=== PATIENT | female | born 1990 | race Caucasian/White ===

== ENCOUNTER 2022-04-19 06:06 | Inpatient (IN) ==
--- NOTE | 2022-04-05 13:21 | Anesthesiology Consultation ---
Date of Service April 05, 2022 History Surgery Operation Date: 04/19/22 08:15 Proposed Procedures p Robotic Adrenalectomy - Manan Parker, DO Height/Weight Height: 5 ft 1 in Weight: 76.204 kg Allergies Allergy/AdvReac Type Severity Reaction Status Date / Time metformin Allergy Unknown Unknown Verified 04/05/22 09:56 venlafaxine Allergy Unknown Hives, Verified 04/05/22 09:56 Itching Medications Home Medications Medication Instructions Recorded Confirmed Last Taken albuterol sulfate 90 mcg/actuation 2 puff inhalation Q6H PRN Wheezing 02/08/22 04/05/22 Unknown aerosol inhaler dulaglutide 0.75 mg/0.5 mL 0.75 mg subcut Q7D 02/08/22 04/05/22 Unknown subcutaneous pen injector (Trulicity) escitalopram oxalate 10 mg tablet 10 mg PO QAM 02/08/22 04/05/22 Unknown (Lexapro) hydroxyzine HCl 25 mg tablet 25 mg PO BID 02/08/22 04/05/22 Unknown sumatriptan succinate 100 mg tablet 100 mg PO Q2H PRN Migraine Headache 02/08/22 04/05/22 Unknown Past Medical History Medical History Anxiety Bronchitis HX-LAST TIME 2-3 YRS AGO-LAST USE RESCUE 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 Depression Diabetes mellitus, type 2 History of COVID-19 07/2021 Past Family History Family History Mother Alcoholism Per [facility] records- "Alcohol and Other Disorders Associated" Hypertension Brother Neurologic disorder Grandmother (Paternal) Cancer Family history of diabetes mellitus Grandfather (Paternal) Cancer Past Surgical History Surgical History delivery delivered X 2 Hx of breast reduction, elective Social History Smoking Status: Current every day smoker Smoking cigarettes per day: 10 CIGS A DAY Do You Dip or Chew Tobacco: No Hx Alcohol Use: Yes Alcohol type: beer, wine and hard liquor alcohol intake frequency: holidays/special occasions only Hx Substance Use: No Testing Laboratory Results Laboratory Tests 03/27/22 03/27/22 11:32 11:32 Hgb 14.8 Plt Count 294 Potassium 3.5 Creatinine 0.79
[~2022-04-19 06:06] MED LIST: LR 15ML/HR IV SCH; ceFAZolin 2000MG 2,000 MG/15 ML SYR IV SCH
[2022-04-19] MEDS ORDERED: ATROPINE SULFATE 0.1 MG/ML 10ML SYR IV PRN (06:54)
[2022-04-19] MEDS ORDERED: fentaNYL citrate 100 MCG/2 ML VIAL IV PRN (06:54)
[2022-04-19] MEDS ORDERED: ePHEDrine sulfate 50 MG/ML AMP IV PRN (06:54)
[2022-04-19] MEDS ORDERED: HYDROmorphone INJ 1 MG/ML SYRINGE IV PRN (06:54)
[2022-04-19] MEDS ORDERED: ONDANSETRON INJ 2 MG/ML 2 ML VIAL IV PRN ×2 (06:54→12:56)
[2022-04-19 07:04] LABS: Pregnancy Test, Serum Negative (Negative)
[2022-04-19] MEDS ORDERED: NEOSTIGMINE METHYLSULFATE 1 MG/ML 10ML VIAL ONE (07:37)
[2022-04-19] MEDS ORDERED: MIDAZOLAM HCL 1 MG/ML 2ML VIAL ONE (07:37)
[2022-04-19] MEDS ORDERED: ONDANSETRON INJ 2 MG/ML 2 ML VIAL ONE ×2 (07:37→10:57)
[2022-04-19] MEDS ORDERED: PROPOFOL IV EMULSION 10 MG/ML 20 ML VIAL IV ONE (07:37)
[2022-04-19] MEDS ORDERED: GLYCOPYRROLATE 0.2 MG/ML VIAL ONE ×2 (07:37→11:05)
[2022-04-19] MEDS ORDERED: fentaNYL citrate 100 MCG/2 ML VIAL ONE (07:37)
[2022-04-19] MEDS ORDERED: DEXAMETHASONE SOD INJ 4 MG/ML VIAL ONE (07:37)
[2022-04-19] MEDS ORDERED: BUPIVACAINE 0.5 % 5 MG/1 ML MPF 30ML VIAL ONE (07:41)
--- NOTE | 2022-04-19 08:09 | History & Physical Bridge Note ---
Date of Service April 19, 2022 History & Physical Bridge Note I have examined the patient, reviewed the History & Physical and in the interval since the performance of the History & Physical I have noted the following changes of clinical significance: no changes noted
[2022-04-19] MEDS ORDERED: HYDROCORTISONE SOD 100 MG in SYRINGE 0 ML IV ONE (08:14)
[2022-04-19] MEDS ORDERED: HYDROCORTISONE SOD SUCCINATE 100 MG/2 ML VIAL IV ONE (08:30)
[2022-04-19] MEDS ORDERED: HYDROCORTISONE SOD SUCCINATE 100 MG/2 ML VIAL ONE (08:52)
[2022-04-19] MEDS ORDERED: LIDOCAINE 2% MPF LOCAL 5 ML VIAL INFIL ONE (08:55)
[2022-04-19] MEDS ORDERED: ROCURONIUM BROMIDE 10 MG/ML 5 ML VIAL IV ONE ×3 (08:55→11:02)
[2022-04-19] MEDS ORDERED: ALBUTEROL HFA INHALER 8.5 GM ONE (09:07)
[2022-04-19] MEDS ORDERED: HYDROmorphone INJ 2 MG/ML SYR/VIAL ONE (10:06)
[2022-04-19] MEDS ORDERED: hydrALAZINE HCL 20 MG/ML VIAL ONE (10:44)
--- NOTE | 2022-04-19 11:26 | Operative Report ---
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 Significant intra-abdominal lipose tissue with Significant adhesions of the omentum and retroperitoneum to the liver Specimens Right adrenal gland with adenoma Drains 18 Fr Tang Anesthesia Type General Complications none Disposition Disposition: Recovery Room Indications Patient with adenoma of the adrenal gland. Patient underwent workup for functional status. Patient was specifically worked up for pheochromocytoma. This workup was negative. Did find severe boris sequela with morbid truncal obesity, diabetic issues, and significant skin issues. The work-up was then completed and confirmation by testing by endocrinology. This lab work was all consistent with adrenal [place] syndrome. Risks and benefits discussed at length. Description of Procedure The patient was brought to the operative suite and placed under general endotracheal intubation anesthesia in the supine position. The patient was transferred to lateral position with the right flank exposed. The patient was placed into a flex'ed position and then placed into mild reverse Trendelenberg. At this point, the patient prepped and draped in the usual sterile fashion and a timeout was completed. Preoperative weight based antibiotics had been given. DANIKA's and SCD's were placed on the patient's lower extremities. A catheter was placed by nursing using sterile technique. Patient had been given 100 mg of hydrocortisone immediately preoperatively. With the time out completed the patient was flexed and the skin was marked. The lateral port site was anesthetized. A small incision was made into the skin and subcutaneous tissues. A Varess needle was selected and placed. The needle was easily moved and it was irrigated and aspirated without any issues or concerns for placement. Insufflation commenced. Once insufflated, the lateral edge of the rectus sheath was marked and anesthetized. The skin was incised and a came ra port was placed. The cavity was insufflated to 15 mmHG. The laparoscopic camera was placed and the abdominal cavity inspected. No concerning features were noted. At this point, the skin was marked for port placement and 8mm working ports were placed. The skin was anesthetized down to fascia and an approx 1cm incision was made to place the 2 x 8mm ports. A 12 mm finance assistant ports were also placed in similar fashion under direct visualization. The robot was positioned and docked. The camera was placed and all trocars were positioned under direct visualization. Marleny Zelda was integral in port placement, camera utilization, and docking procedure. She remained in sterile attire and then proceeded to assist the remainder of the case. The colon was mobilized medially to expose the retroperitoneum and the area assessed. Adhesions were freed to allow mobilization. A small amount of adhesions were noted from the colon and were freed. These were dissected with blunt technique. Cautery was used to assist dissection and control bleeding. The retroperitoneal fat was assessed. The adenoma as well as the IVC was identified. Care was taken to dissect down near the IVC. This was then followed superiorly. Dissection stayed toward the midline along the IVC and the ureter and gonadal vein were avoided. The dissection was followed to the renal pelvis. The Renal Vein was identified and exposed. Dissection was taken further superior. At this point the liver was further mobilized. A severe amount of adhesions was noted coming from the liver to the retroperitoneum as well as a long the medial edge attached to the omentum. The liver was enlarged and required retraction. A extensive lysis of adhesions was completed with approximately 30 minutes spent lysing adhesions and entering and accessing to the retroperitoneum in order to dissect over the superior edge of the adrenal gland and the retroperitoneum. The liver was then mobilized and care was taken to slowly dissect between the adenoma/adrenal gland and the IVC. The Adrenal vein was identified. The vein was found to be small and a single hemolock clips were used to clamp the vein. The portion of the adrenal vein proximal to the adrenal gland was then ligated and cut. No changes in heart rate or blood pressure occurred with placement of the clips. The adrenal gland with the large adenoma was then slowly dissected. Small vessels were ligated and cut as dissection progressed. The posterior, inferior, and superior surfaces were dissected free. The superior edge was found to have additional adhesions and required careful dissection to remove from the liver. Some small areas of irritation were noted from both the retraction of the liver as well as the dissection on top of the liver tissue. N o major bleeding or other issues. The specimen was placed into a catch bag and set to the side. Surgicel hemostatic agent sheets were placed under the liver and on the incised edge. Hemostatic agents Tisseel and Floseal were also placed. Hemostatic agent was also placed on the IVC. No major bleeding or other issues. The entire dissection space was inspected one final time. No bleeding or injuries or areas of concern were noted. No tumor or other concerning features were noted. The kidney appeared to be without injury or area of concern. At this point, the robot was undocked and moved away from the patient. The port sites were all assessed laparoscopically. The endoscopic bag was moved into the finance assistant port. The other ports were assessed and no issues observed. The finance assistant port incision was opened further exposing fascia which was then opened in order to removed the mass within the bag. This was then removed and the wound assessed. A running 1-0 PDS suture was used to close fascia. The skin at each site was closed with a a running 4-0 Monocryl suture. Surgical glue was then placed over the incisions. The area was cleaned and bandage placed on each incision. The patient was cleaned and bandaged. He was moved back into the supine position The patient was cleaned, aroused from anesthesia, and transferred to the pacu in stable condition having tolerated the procedure well with no complications. I was present and participated in all aspects of the procedure. ELLIE Chen was involved with all critical portions of the procedure as mentioned above. The endocrinology team has already recommended a steroid regimen to be implemented postoperatively. Patient will be transferred to PACU and monitored and then transferred to the floor for observation. We will initiate diet and activity with plans to monitor overnight and possibly discharge in the morning. We will plan to have patient follow-up in approximately 2 to 3 weeks to assess w ounds and discuss pathology. I attest to the content of the Intraoperative Record and any orders documented therein. Any exceptions are noted below.
[2022-04-19 11:56] LABS: Hematocrit (blood only) 41.1 % (34.1-44.9); Hemoglobin 13.5 g/dl (12.0-16.0); Mean Corpuscular Hemoglobin 30.6 pg (25.0-34.0); Mean Corpuscular Hgb Conc 32.8 g/dL (32.0-36.0); Mean Corpuscular Volume 93.2 fL (80.0-100.0); Mean Platelet Volume 9.9 fL (9.4-12.3); Platelet Count 306 K/uL (130-400); RDW Standard Deviation 43.9 fL (36.4-46.3); Red Blood Count 4.41 M/uL (3.93-5.22); White Blood Count 27.99 K/ul (4.8-10.8)
[2022-04-19 12:22] LABS: Basophils # (auto) 0.09 K/uL (0-0.2); Basophils % (auto) 0.3 %; Eosinophils # (auto) 0.08 K/uL (0-0.50); Eosinophils % (auto) 0.3 %; Immature Granulocytes # (auto) 0.76 K/uL (0.00-0.02); Immature Granulocytes % (auto) 2.7 %; Lymphocytes # (auto) 3.02 K/uL (1.2-3.4); Lymphocytes % (auto) 10.8 %; Neutrophils # (auto) 22.64 K/uL (1.4-6.5); Neutrophils % (auto) 80.9 %
[2022-04-19 12:25] LABS: Albumin Globulin Ratio 1.6 (0.9-2); Albumin Level 3.6 gm/dl (3.4-5.0); BUN Creatinine Ratio 19.7 (10-20); Bilirubin,Total 0.3 mg/dl (0.2-1.0); Calcium 8.5 mg/dl (8.5-10.1); Creatinine Clr Calc Pharmacy 105.6 ml/min; Est GFR (African American) 130.6 ml/min; Est GFR (Non-African American) 112.7 ml/min; Globulin 2.2 gm/dl (2.5-4.0); Total Protein 5.8 gm/dl (6.0-8.3)
--- NOTE | 2022-04-19 12:38 | Anesthesiology Progress Note ---
Date of Service April 19, 2022 Anesthesia Post Procedure Vital Signs Vital Signs: Temp Pulse Pulse Resp BP Pulse Ox O2 Del Method 04/19/22 12:25 36.4 C L 69 12 127/80 93 Nasal Cannula 04/19/22 12:05 70 18 137/82 94 Oxymask 04/19/22 11:55 76 18 136/99 93 Oxymask 04/19/22 11:45 80 19 144/94 H 92 Oxymask 04/19/22 12:15 88 16 127/81 94 Nasal Cannula 04/19/22 11:38 36.7 C 98 H 12 154/97 H 94 Oxymask 04/19/22 06:32 36.4 C L 64 18 137/102 H 98 Room Air O2 Flow Rate 04/19/22 12:25 2 04/19/22 12:05 6 04/19/22 11:55 8 04/19/22 11:45 10 04/19/22 12:15 2 04/19/22 11:38 10 04/19/22 06:32 Pain Intensity Right Abdomen: Pain Intensity: 4 Transfer of Care Handoff Completed per policy Notes Mental Status: alert / awake / arousable and participated in evaluation Patient Amnestic to Procedure: Yes Nausea / Vomiting: adequately controlled Pain: adequately controlled Airway Patency, RR, SpO2: stable & adequate BP & HR: stable & adequate Hydration State: stable & adequate Anesthetic Complications: no major complications apparent and Pt Satisfied with anesthetic care
[2022-04-19] MEDS ORDERED: SUMAtriptan succinate 100 MG TAB PO PRN (12:56)
[2022-04-19] MEDS ORDERED: oxyCODONE HCL IR 5 MG TAB (IMMEDIATE RELEASE) PO PRN (12:56)
[2022-04-19] MEDS ORDERED: PHARMACY GLYCEMIC MGMT CONSULT PRN (12:56)
[2022-04-19] MEDS ORDERED: ALBUTEROL HFA 8 GM INHALER INH PRN (12:56)
[2022-04-19] MEDS: MoRPHine SULFATE 2 MG/ML CARP IV PRN (13:11)
[2022-04-19] MEDS: ACETAMINOPHEN 325 MG TAB PO SCH ×2 (13:11→18:49)
[2022-04-19] MEDS: LACTATED RINGER'S 1,000 ML IV SCH ×2 (13:12→22:25)
[2022-04-19] MEDS ORDERED: LANTUS PER UNIT CHARGE SQ ONE ×2 (13:45→14:00)
[2022-04-19] MEDS ORDERED: GLUCOSE 10 TAB/TUBE PO PRN (13:45)
[2022-04-19] MEDS ORDERED: GLUCOSE 40% GEL 15 GM TUBE PO PRN (13:45)
[2022-04-19] MEDS ORDERED: CARBOHYDRATES FOR HYPOGLYCEMIA PO PRN (13:45)
[2022-04-19] MEDS ORDERED: GLUCAGON FOR INJ 1 MG VIAL IM PRN (13:45)
[2022-04-19] MEDS ORDERED: DEXTROSE 50% 50 ML SYRINGE IV PRN (13:45)
--- NOTE | 2022-04-19 13:53 | Pharmacy Report ---
Pharmacy Glycemic Short Note 2 - Date of Service April 19, 2022 - Glycemic Short BSG Results (Last 24 hours): 04/19/22 04/19/22 04/19/22 06:25 11:42 11:44 Glucose 201 H POC Glucose 158 H 195 H OUTPATIENT ANTIDIABETIC REGIMEN: * Trulicity 0.75 mg SC weekly HbA1c ordered for 04/20/22 ASSESSMENT: * OK is a 31 year old female with T2DM and [place] syndrome now POD #0 s/p right adrenalectomy * Ordered prednisone 40 mg x 1 this afternoon followed by prednisone 20 mg q8h * Will order ~0.4 unit/kg Lantus x 1 now + aggressive Novolog to help cover hyperglycemic effects of steroids * Preoperative BSG of 158 and postoperative BSG of 195 mg/dL PLAN FOR INPATIENT GLYCEMIC CONTROL: * Basal insulin * Lantus 30 units SC x 1 (~0.4 unit/kg) * Bolus insulin * NovoLog per scale ACHS or Q6hrs while NPO * Goal Range: Low 110 mg/dL - High 140 mg/dL * Correction Factor: 20 mg/dL/unit * Nutritional / Prandial insulin per carb ratio of 1 unit per 7 grams CHO consumed
[2022-04-19] MEDS: INSULIN ASPART PER UNIT SC SCH ×3 (14:00→20:55)
[2022-04-19] MEDS: oxyCODONE HCL IR 5 MG TAB (IMMEDIATE RELEASE) PO PRN ×3 (14:02→23:12)
[2022-04-19] MEDS ORDERED: predniSONE 20 MG TAB PO ONE (15:00)
--- NOTE | 2022-04-19 15:09 | Hospitalist Consultation ---
Date of Consultation April 19, 2022 Assessment & Plan (1) H/O total adrenalectomy: - POD#0, EBL 60 cc, without complications. - She is complaining of right-sided back/chest pain with respirations. Breath sounds are equal bilaterally. On RA without hypoxia. - Pain/ABX/IVF/diet/drain management/transfusion needs/activity per primary team. - Rescue Narcan ordered for over sedation PRN - VTE prophylaxis per primary service-SCDs and heparin every 12 hours ordered by primary team. - CBC and BMP in AM. - Baseline renal function: Cr 0.71, GFR 112 - Baseline Hgb: 13.5 - Patient to be on 50 mg IV hydrocortisone x2 bags today POD #0, followed by 40 mg p.o. hydrocortisone tomorrow a.m. and 20 mg p.o in the afternoon. - Patient reported history of reflux, will place patient on prophylactic PO Protonix. (2) Viviana syndrome: (3) Diabetes: - Managed with Trulicity weekly, due for injection tomorrow. - Accucheks ACHS with aggressive SSI while admitted and on IV/PO steroids. - A1c in AM. (4) Depression: - Continue Lexapro and hydroxyzine. (5) LFT elevation: - AST 94, ALT 95 post-operatively. - No history of elevated LFTS or known liver disease. - Suspect it is a transient post-op transaminitis. - Monitor on tomorrow's labs. Plan - Admitted to med/surg by primary team - SCDs and Heparin for VTE ppx per primary team. - Full Code. Supervising Physician Co-Signing Physician Notes I personally saw and examined the patient. I verified all nicole points and agree with Yvonne Lomeli PA-C with the following exceptions and/or additions: 31 year old female POD#0 right adrenalectomy. Diagnosed with Viviana syndrome. Having some mild post operative pain on right side, especially on deep breathin g. No prior DVT or PE. O/E Lewis facies, obese, HS1+2, no murmurs, Chest CTAB, Abdo SNT (no palpated on right side). A/P s/p adrenalectomy - Will follow endocrinology recommendations although recommend IV hydrocortisone 50mg q8h overnight as above and discussed with urology MANAGER TELEMARKETING. Start hydrocortisone 40mg +20mg PO tomorrow. Can be discharged on 20mg + 10mg PO. Post operative labs expected. Suspect transaminitis also due to operation and likely to improve with AM labs. Thank you for the consult will review patient tomorrow with AM labs History of Present Illness Reason for Consultation: post-op medical management Requesting Physician: Manan Parker II, DO Attending Physician: Manan Parker II, DO History of Present Illness Khushi Mclaughlin is a 31-year-old female with past medical history significant for Viviana's syndrome, diabetes, anxiety, depression, and migraine headaches who was admitted today, 04/19 for robotic right adrenalectomy and lysis of lesions. Hospitalist group was consulted for post-operative medication management. Today, she is POD#0 and feels well. Does complain of some mildmoderate right back and chest pain with inspirations. She denies fever/chills, weakness, chest pain palpitations, shortness of breath, cough, abdominal pain, nausea, vomiting. Regarding her chest pain, it is likely due to surgery this all morning on that side. Breath sounds are equal bilaterally, no concern for pneumothorax. She is on room air. She has incentive spirometry ordered every hour and I encouraged her to use this postoperatively. She does have Tylenol and morphine, and oxycodone available for pain. Allergies Allergy/AdvReac Type Severity Reaction Status Date / Time metformin Allergy Unknown Unknown Verified 04/19/22 06:27 venlafaxine Allergy Unknown Hives, Verified 04/19/22 06:27 Itching Home Medications Medication Instructions Recorded Confirmed Type albuterol sulfate 90 mcg/actuation 2 puff inhalation Q6H PRN Wheezing 02/08/22 04/19/22 History aerosol inhaler dulaglutide 0.75 mg/0.5 mL 0.75 mg subcut Q7D 02/08/22 04/19/22 History subcutaneous pen injector (Trulicity) escitalopram oxalate 10 mg tablet 10 mg PO QAM 02/08/22 04/19/22 History (Lexapro) hydroxyzine HCl 25 mg tablet 25 mg PO BID 02/08/22 04/19/22 History sumatriptan succinate 100 mg tablet 100 mg PO Q2H PRN Migraine Headache 02/08/22 04/19/22 History Patient History Medical History (Updated 04/19/22 @ 16:07 by Yvonne Lomeli PA-C) Anxiety Bronchitis HX-LAST TIME 2-3 YRS AGO-LAST USE RESCUE INHALE RUSE Viviana syndrome Depression Diabetes mellitus, type 2 History of COVID-19 07/2021 Surgical History (Updated 04/19/22 @ 15:21 by Yvonne Lomeli PA-C) delivery delivered X 2 H/O total adrenalectomy Hx of breast reduction, elective Family History Mother Alcoholism Per [facility] records- "Alcohol and Other Disorders Associated" Hypertension Brother Neurologic disorder Grandmother (Paternal) Cancer Family history of diabetes mellitus Grandfather (Paternal) Cancer Social History Smoking Status: Current every day smoker Tobacco Type: Cigarettes packs per day: 1; Years Smoked: 10; Cigarettes Per Day: 10 CIGS A DAY; Second Hand Exposure: Yes; Do You Dip or Chew Tobacco: No; Hx Alcohol Use: Yes Alcohol type: beer, wine and hard liquor Hx Substance Use: No Preferred Language: Ukrainian Communication Ability: Effective Hearing Ability: Normal Press Cleaner Required: No Beliefs That Will Affect Care: None marital status: Single Current Living Situation: Family and Significant Other current occupational status: employed 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 How many Children do You have: 2 Other Information That Helps Us Care for You: No Feels Safe at Home: Yes Safety Concerns: Feels Safe At This Time Assistive Devices: None Review of Systems Review of Systems: Constitutional: No fever/chills, weakness, fatigue, myalgias, anorexia, night sweats Eyes: No diplopia, no worsening or blurred vision ENT: normal hearing, no trouble swallowing Respiratory: right sided pain with respirations; No cough, sputum, dyspnea at rest or on exertion Cardiovascular: No chest pain, tightness or palpitations Abdomen: No pain, nausea, vomiting, diarrhea or constipation : Denies dysuria, hematuria, increased urgency/frequency, urinary retention Musculoskeletal: No joint pain, calf pain, swelling Neurologic: No weakness, numbness/tingling, or balance problems Psychiatric: No anxiety or depression Skin: No rash or itch Physical Exam Physical Exam: General: awake, alert, no apparent distress Head: Normocephalic, atraumatic ENT: PERRL, EOMI, no pharyngeal exudate, mucous membranes moist Chest: Clear to auscultation, on room air, no adventitious breath sounds Cardiac: Regular rate and rhythm, no murmur, no JVD, normal peripheral pulses, good capillary refill Abdominal: TTP along right flank; NABS x 4 quadrants, soft, nontender to palpation, no rebound, guarding or tenderness Extremities: Normal inspection, no peripheral edema or erythema, calfs nontender to palpation Psych: Normal mood and affect Neuro: AAO x 3, strength intact bilaterally and rated 5/5, no motor deficits, speech is clear, no peripheral sensory deficits Skin: no rash or erythema Results & Data Results & Data ([facility]) Vital Signs (Past 12 Hours) Vital Signs Temp Pulse Pulse Resp BP BP Pulse Ox 04/19/22 14:40 36.3 C L 81 18 128/81 96 04/19/22 13:46 36.3 C L 92 H 16 118/78 97 04/19/22 13:40 04/19/22 13:15 36.4 C L 95 H 16 133/85 98 04/19/22 12:45 36.4 C L 71 14 123/86 95 04/19/22 12:25 36.4 C L 69 12 127/80 93 04/19/22 12:05 70 18 137/82 94 04/19/22 11:55 76 18 136/99 93 04/19/22 11:45 80 19 144/94 H 92 04/19/22 12:15 88 16 127/81 94 04/19/22 11:38 36.7 C 98 H 12 154/97 H 94 04/19/22 06:32 36.4 C L 64 18 137/102 H 98 O2 Del Method O2 Flow Rate 04/19/22 14:40 Nasal Cannula 1 04/19/22 13:46 Nasal Cannula 2 04/19/22 13:40 Nasal Cannula 2 04/19/22 13:15 Nasal Cannula 2 04/19/22 12:45 Nasal Cannula 2 04/19/22 12:25 Nasal Cannula 2 04/19/22 12:05 Oxymask 6 04/19/22 11:55 Oxymask 8 04/19/22 11:45 Oxymask 10 04/19/22 12:15 Nasal Cannula 2 04/19/22 11:38 Oxymask 10 04/19/22 06:32 Room Air Laboratory Results Abnormal lab results 04/19/22 04/19/22 04/19/22 Range/Units 06:25 11:42 11:44 WBC 27.99 H (4.8-10.8) K/ul Neut # (Auto) 22.64 H (1.4-6.5) K/uL Pitkin # (Auto) 1.40 H (0.24-0.82) K/uL Immature Gran # (Auto) 0.76 H (0.00-0.02) K/uL Glucose (70-99(Fasting)) mg/dl POC Glucose 158 H 195 H (70-99) mg/dl AST (13-39) U/L ALT (7-52) U/L Total Protein (6.0-8.3) gm/dl Globulin (2.5-4.0) gm/dl 04/19/22 04/19/22 Range/Units 11:44 13:49 WBC (4.8-10.8) K/ul Neut # (Auto) (1.4-6.5) K/uL Pitkin # (Auto) (0.24-0.82) K/uL Immature Gran # (Auto) (0.00-0.02) K/uL Glucose 201 H (70-99(Fasting)) mg/dl POC Glucose 209 H (70-99) mg/dl AST 94 H (13-39) U/L ALT 95 H (7-52) U/L Total Protein 5.8 L (6.0-8.3) gm/dl Globulin 2.2 L (2.5-4.0) gm/dl PG Care Time/CCT Total # of Minutes Spent Total Time Spent with Patient: Total time spent is greater than 50% in coordination of care (as documented) at patient's floor/unit and/or counseling patient: Coding Level of Care Code 28639 Inpt Consult Level 3 Diagnoses H/O total adrenalectomy E89.6 Viviana syndrome E24.9 Diabetes E11.9 Depression F32.A LFT elevation R79.89
[2022-04-19] MEDS ORDERED: NALOXONE HCL 0.4 MG/1 ML VIAL/CARP IV PRN (15:57)
[2022-04-19] MEDS: MoRPHine SULFATE 4 MG/ML 1 ML CARP\\VIAL IV PRN ×2 (16:01→19:27)
[2022-04-19] MEDS: HYDROCORTISONE SOD 50 MG in SYRINGE 0 ML IV SCH (16:01)
[2022-04-19] MEDS: PANTOprazole 40 MG TAB PO SCH (20:57)
[2022-04-19] MEDS ORDERED: HEPARIN SOD 5,000 UNIT/0.5 ML VIAL SQ SCH (21:00)
[2022-04-19] MEDS ORDERED: hydrOXYzine HCl 25 MG TAB PO SCH (21:00)
[2022-04-19] MEDS ORDERED: predniSONE 20 MG TAB PO SCH (23:00)
[2022-04-20] MEDS ORDERED: INSULIN ASPART PER UNIT SC SCH ×2
[2022-04-20] MEDS: HYDROCORTISONE SOD 50 MG in SYRINGE 0 ML IV SCH (00:05)
[2022-04-20] MEDS: INSULIN ASPART PER UNIT SC SCH ×4 (00:11→12:26)
[2022-04-20] MEDS: ACETAMINOPHEN 325 MG TAB PO SCH ×2 (01:27→06:47)
[2022-04-20] MEDS: MoRPHine SULFATE 2 MG/ML CARP IV PRN (03:50)
[2022-04-20 06:22] LABS: Albumin Globulin Ratio 1.7 (0.9-2); Albumin Level 3.6 gm/dl (3.4-5.0); BUN Creatinine Ratio 17.5 (10-20); Basophils # (auto) 0.02 K/uL (0-0.2); Basophils % (auto) 0.1 %; Bilirubin,Total 0.5 mg/dl (0.2-1.0); Calcium 8.9 mg/dl (8.5-10.1); Creatinine Clr Calc Pharmacy 131.5 ml/min; Eosinophils # (auto) 0.02 K/uL (0-0.50); Eosinophils % (auto) 0.1 %; Est GFR (African American) 142.2 ml/min; Est GFR (Non-African American) 122.7 ml/min; Globulin 2.1 gm/dl (2.5-4.0); Hematocrit (blood only) 38.6 % (34.1-44.9); Hemoglobin 12.6 g/dl (12.0-16.0); Immature Granulocytes # (auto) 0.05 K/uL (0.00-0.02); Immature Granulocytes % (auto) 0.4 %; Lymphocytes # (auto) 2.22 K/uL (1.2-3.4); Lymphocytes % (auto) 16.2 %; Mean Corpuscular Hemoglobin 30.8 pg (25.0-34.0); Mean Corpuscular Hgb Conc 32.6 g/dL (32.0-36.0); Mean Corpuscular Volume 94.4 fL (80.0-100.0); Mean Platelet Volume 10.1 fL (9.4-12.3); Monocytes % (auto) 5.8 %; Neutrophils # (auto) 10.63 K/uL (1.4-6.5); Neutrophils % (auto) 77.4 %; Platelet Count 232 K/uL (130-400); Potassium 4.2 mmol/L (3.5-5.1); RDW Coefficient of Variation 12.8 % (11.5-14.5); RDW Standard Deviation 43.9 fL (36.4-46.3); Red Blood Count 4.09 M/uL (3.93-5.22); Total Protein 5.7 gm/dl (6.0-8.3); White Blood Count 13.74 K/ul (4.8-10.8)
[2022-04-20 07:29] LABS: Estimated Average Glucose 154 mg/dl
[2022-04-20] MEDS ORDERED: HYDROCORTISONE 10 MG TAB PO SCH ×2 (08:00→16:00)
[2022-04-20] MEDS: PANTOprazole 40 MG TAB PO SCH (08:11)
[2022-04-20] MEDS ORDERED: HEPARIN SOD 5,000 UNIT/0.5 ML VIAL SQ SCH (09:00)
[2022-04-20] MEDS ORDERED: ESCITALOPRAM OXALATE 10 MG TAB PO SCH (09:00)
--- NOTE | 2022-04-20 09:09 | Hospitalist Progress Note ---
Date of Service April 20, 2022 Assessment & Plan (1) H/O total adrenalectomy: Plan: - POD#0, EBL 60 cc, without complications. - She is complaining of right-sided back/chest pain with respirations. Breath sounds are equal bilaterally. On RA without hypoxia. - Pain/ABX/IVF/diet/drain management/transfusion needs/activity per primary team. - Rescue Narcan ordered for over sedation PRN - VTE prophylaxis per primary service-SCDs and heparin every 12 hours ordered by primary team. - CBC and BMP in AM. - Baseline renal function: Cr 0.71, GFR 112 - Baseline Hgb: 13.5 - Patient to be on 50 mg IV hydrocortisone x2 bags day of surgery, followed by 40 mg p.o. hydrocortisone tomorrow a.m. and 20 mg p.o in the afternoon. - Patient reported history of reflux, will place patient on prophylactic PO Protonix. (2) Viviana syndrome: (3) Diabetes: Plan: - Managed with Trulicity weekly, due for injection tomorrow. - Accucheks ACHS with aggressive SSI while admitted and on IV/PO steroids. - A1c in AM. (4) Depression: Plan: - Continue Lexapro and hydroxyzine. (5) LFT elevation: Plan: - AST 94, ALT 95 post-operatively. - No history of elevated LFTS or known liver disease. - Suspect it is a transient post-op transaminitis. - Monitor on tomorrow's labs. Plan - Admitted to med/surg by primary team - SCDs and Heparin for VTE ppx per primary team. - Full Code. Admission and Anticipated Discharge Date Admission Date: April 19, 2022 Subjective Pt in the room with bobo has no distress and wants to go home, instructed to follow up with primary care about blood pressure, to avoid caffeine and alcohol Review of Systems Review of Systems: Mild distress and fatigue no headache, no visual changes no speech or swallowing issues no chest pain, pressure or palpitations no shortness of breath, cough or wheezes no abdominal pain, nausea or vomiting, diarrhea or constipation no dysuria, hematuria or frequency no focal joint pain or swelling no back pain, CVA tenderness or radicular pain no bruising, bleeding or rashes no focal signs of weakness or numbness or altered sensation no complaints of anxiety or depression.. Physical Exam Physical Exam: The patient appeared well nourished and normally developed. Vital signs as documented. Head exam is normocephalic atraumatic Neck is without JVD, thyromegaly, or carotid bruits. Lungs are clear to auscultation, no focal loss of breath sounds Cardiac exam, Rhythm is regular.. No murmurs, rubs or gallops. Abdominal exam reveals normal bowel sounds, soft non tender, no masses Extremities are nonedematous and both pedal pulses are present Neurologic exam is alert and oriented, no focal loss of strength or sensation Skin is without bruises or rashes Psychologically is without concerns for anxiety or depression.. Results & Data Results & Data ([facility]) Vital Signs (Past 12 Hours) Vital Signs Temp Pulse Resp BP BP Pulse Ox O2 Del Method 04/20/22 07:00 97.7 F 67 18 158/99 H 96 Room Air 04/20/22 04:07 133/88 04/20/22 03:49 98.2 F 62 18 154/99 H 94 Room Air 04/19/22 23:53 97.7 F 53 L 16 134/84 94 Room Air PG Care Time/CCT Total # of Minutes Spent Total Time Spent with Patient: Total time spent is greater than 50% in coordination of care (as documented) at patient's floor/unit and/or counseling patient: Coding Level of Care Code 06961 Subseq Hosp Care Lvl 2 Diagnoses H/O total adrenalectomy E89.6 [place] syndrome E24.9 Diabetes E11.9 Depression F32.A LFT elevation R79.89
--- NOTE | 2022-04-20 09:46 | Urology Progress Note ---
Date of Service April 20, 2022 Assessment & Plan (1) Lesion of adrenal gland: Plan: - POD #1 s/p Robotic right Adrenalectomy with extensive lysis of adhesions. - Doing well, progressing as expected. - Lab work reviewed - creatinine 0.57, Hgb 12.6, WBC improved to 13.74, transaminitis is downtrending today. - Incisions appropriate. - Ambulating and tolerating regular diet. - Voiding without difficulty after catheter removal this AM. - Continue post-op steroid instructions per Endocrinology. - Hydrocortisone 40 mg + 20 mg PO today. Will be discharged on 20 mg + 10 mg PO. - Appreciate hospitalist assistance with medical management. - Anticipate discharge to home later today presuming she continues to progress. Attending note: Independently assessed, examined, interviewed, and evaluated. Agree with note as above. Patient is postop day 1 status post robotic right adrenalectomy with lysis of adhesions. Patient's labs have been stable. Patient has orders and recommendations from endocrinology in place for steroid management after. Patient has been followed by hospitalist while admitted. Patient has history of Viviana syndrome with adrenal nodule and 2 to 3 years of worsening obesity, diabetes, hypertension, and other issues. Patient has been recovering well. Is not having significant pain. Has been ambulating. Catheter was removed without major issue and patient has been voiding. Patient is tolerating diet. Has lunch coming up. We will plan to have patient discharge after lunch today. As long as patient remained stable and plans are in place can continue moving forward and wound care, lifting restrictions, activity level, expectations after surgery, and other issues were discussed. Patient will be able wash later today. Can shower with warm soapy water. Will avoid lifting over 50 pounds until reassessment with follow-up. We will plan to have follow-up with our office in approximately 1 to 2 weeks for wound assessment and pathology review. Patient already has a follow-up with endocrinology set for 2 weeks to reevaluate her other ongoing medical issues likely sequelae from Viviana syndrome. (2) Viviana syndrome: (3) HTN (hypertension): (4) Diabetes: Admission and Anticipated Discharge Date Admission Date: April 19, 2022 Subjective Patient seen and examined at bedside this AM. She is awake and sitting up in bedside chair. Subjectively doing well, no issues overnight. She has been ambulating without difficulty. Notes some incisional discomfort, but well controlled with pain medication. Tang was removed this AM and she is voiding without difficulty. Tolerated regular diet for breakfast. No nausea or vomiting. No fever or chills. Review of Systems Constitutional: as per Subjective / HPI Gastrointestinal: as per Subjective / HPI Genitourinary: as per Subjective / HPI Physical Exam Constitutional: + obese and + cushingoid; no acute distress Respiratory: no respiratory distress and no labored breathing Cardiovascular: Extremities: no pedal edema Gastrointestinal (Abdomen): Inspection/Auscultation: abdomen normal to inspection; abdomen not distended Percussion/Palpation: abdomen soft; abdomen nontender and no guarding Musculoskeletal: Head/Neck/Chest: head atraumatic Skin: Surgical incisions C/D/I, healthy and well approximated, dermabond intact, no erythema or drainage Neurologic: moves all extremities and awake Psychiatric: Orientation: alert and oriented x 3 Results & Data ([facility]) Vital Signs (Past 12 Hours) Vital Signs Temp Pulse Resp BP BP Pulse Ox O2 Del Method 04/20/22 07:00 36.5 C 67 18 158/99 H 96 Room Air 04/20/22 04:07 133/88 04/20/22 03:49 36.8 C 62 18 154/99 H 94 Room Air 04/19/22 23:53 36.5 C 53 L 16 134/84 94 Room Air PG Care Time/CCT Total # of Minutes Spent Total Time Spent with Patient: Total time spent is greater than 50% in coordination of care (as documented) at patient's floor/unit and/or counseling patient: Coding Level of Care Code 97630 Subseq Hosp Care Lvl 2 Diagnoses Lesion of adrenal gland E27.9 Viviana syndrome E24.9 HTN (hypertension) I10 Diabetes E11.9
[2022-04-20] MEDS: oxyCODONE HCL IR 5 MG TAB (IMMEDIATE RELEASE) PO PRN (10:20)
[2022-04-20] MEDS ORDERED: PANTOprazole 40 MG in SYRINGE 0 ML IV SCH (11:00)
[2022-04-20] MEDS ORDERED: LANTUS PER UNIT CHARGE SQ SCH (13:15)
--- NOTE | 2022-04-20 14:00 | Discharge Summary ---
Date of Service April 20, 2022 Admission HPI Per Admitting Provider Patient with adenoma of the adrenal gland. Patient underwent workup for functional status. Patient was specifically worked up for pheochromocytoma. This workup was negative. Did find severe viviana sequela with morbid truncal obesity, diabetic issues, and significant skin issues. The work-up was then completed and confirmation by testing by endocrinology. 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 Risks and benefits discussed at length. Admission Exam Per Admitting Provider General: Alert in no acute distress. HEENT: Inspection normal Psychologic: Normal affect. Respiratory: Nonlabored. No use of accessory muscles. Skin: [place] and Dry. No rashes or visible lesions. Principal Diagnosis Lesion of adrenal gland Discharge Exam Constitutional: + obese and + cushingoid; no acute distr ess Respiratory: no respiratory distress and no labored breathing Cardiovascular: Extremities: no pedal edema Gastrointestinal (Abdomen): Inspection/Auscultation: abdomen normal to inspection; abdomen not distended Percussion/Palpation: abdomen soft; abdomen nontender and no guarding Musculoskeletal: Head/Neck/Chest: head atraumatic Skin: Surgical incisions C/D/I, healthy and well approximated, dermabond intact, no erythema or drainage Neurologic: moves all extremities and awake Psychiatric: Orientation: alert and oriented x 3 Discharge Data Allergies Allergy/AdvReac Type Severity Reaction Status Date / Time metformin Allergy Unknown Unknown Verified 04/19/22 06:27 venlafaxine Allergy Unknown Hives, Verified 04/19/22 06:27 Itching Consultations 04/19/22 12:56 Consult Hospitalist Routine Procedures Performed Operation Date: 04/19/22 08:15 Actual Procedures p Robotic right Adrenalectomy with extensive lysis of adhesions(Right) - Manan Parker, DO Hospital Course (1) Lesion of adrenal gland: - POD #1 s/p Robotic right Adrenalectomy with extensive lysis of adhesions. - Doing well, progressing as expected. - Lab work reviewed - creatinine 0.57, Hgb 12.6, WBC improved to 13.74, transaminitis is downtrending today. - Incisions appropriate. - Ambulating and tolerating regular diet. - Voiding without difficulty after catheter removal this AM. - Continue post-op steroid instructions per Endocrinology. - Hydrocortisone 40 mg + 20 mg PO today. Will be discharged on 20 mg + 10 mg PO. - Appreciate hospitalist assistance with medical management. - Anticipate discharge to home later today presuming she continues to progress. - Patient ready for discharge, orders placed. - Recommend follow-up with PCP regarding elevated blood pressure and monitoring liver enzymes. - She will follow-up with Endocrinology in 2 weeks. Attending note: Independently assessed, examined, interviewed, and evaluated. Agree with note as above. Patient is postop day 1 status post robotic right adrenalectomy with lysis of adhesions. Patient's labs have been stable. Patient has orders and recommendations from endocrinology in place for steroid management after. Patient has been followed by hospitalist while admitted. Patient has history of Viviana syndrome with adrenal nodule and 2 to 3 years of worsening obesity, diabetes, hypertension, and other issues. Patient has been recovering well. Is not having significant pain. Has been ambulating. Catheter was removed without major issue and patient has been voiding. Patient is tolerating diet. Has lunch coming up. We will plan to have patient discharge after lunch today. As long as patient remained stable and plans are in place can continue moving forward and wound care, lifting restrictions, activity level, expectations after surgery, and other issues were discussed. Patient will be able wash later today. Can shower with warm soapy water. Will avoid lifting over 50 pounds until reassessment with follow-up. We will plan to have follow-up with our office in approximately 1 to 2 weeks for wound assessment and pathology review. Patient already has a follow-up with endocrinology set for 2 weeks to reevaluate her other ongoing medical issues likely sequelae from [place] syndrome. (2) Viviana syndrome: (3) HTN (hypertension): (4) Diabetes: Total Time Total Time Spent Total Time Spent (In Minutes): 29 Discharge Plan Discharge Items Patient Disposition: Home - Self-Care Reason For Visit: Lesion of Adrenal Gland Discharge Diagnosis: Lesion of Adrenal Gland Activity: Per Instructions section Lifting: No more than 10 pounds Bathing Comment: Okay to shower after discharge Sexual Activity: Wait until after follow-up appointment Exercise/Sports: Wait until after follow-up appointment Driving/Machine Use: No driving while taking prescription pain medication Non-emergency contact: Surgeon and Urologist Call non-emergency contact if: your pain is not controlled, you have a fever, your temperature is above 101, your wound has increased redness, your wound has increased drainage and your wound pain has increased Follow-up/Referrals: Jorge Luis Robison MD [Physician] - 05/03/22 11:00 am Manan Parker DO [Physician] - Ingris Corbin MD [Primary Care Provider] - Diet: Carb Consistent or DM2 Addtl Attending Provider Instructions: Please take all medications as prescribed and keep all follow-ups as scheduled. Please call our office at [phone] with any questions, concerns or need to reschedule appointments for any reason. We are happy to assist you. Take hydrocortisone 20 mg (2 tablets) at 4 pm today (04/20/22). Starting tomorrow morning (04/21) you will take 20 mg (2 tablets) first thing in the morning and 10 mg (1 tablet) 8 hours later. You will continue this regimen until your follow-up with endocrinology. Recommend a follow-up with your primary care provider after discharge regarding your elevated blood pressure. Your liver enzymes were also elevated on lab work and these can also be monitored by your PCP. Recovering at home: We recommend having someone with you for the first few days after surgery to help care for you. It is okay to shower tomorrow. Please avoid swimming, bathing or using hot tub until incisions are well healed. Avoid driving until you are not requiring pain medication any further. Walk at least a few times a day. Increase your distance, as you feel able. Stairs in your home are okay. Please avoid strenuous or sexual activity until your follow-up. We recommend using stool softener (i.e. Colace) to prevent constipation and straining, especially the first two weeks post operatively. Call [facility] at [phone] if you experience: Chest pain or trouble breathing (call [phone] or go to the hospital). Fever of 101F or higher Symptoms of infection at incision site, including redness or swelling, warmth, or bad-smelling drainage If you have catheter, and you notice: o Bloody urine or drainage that is dark red or has large clots (Please remember a small amount of blood is normal) o No drainage from the catheter for more than 6 hours o The catheter comes out of your bladder Pain that is not controlled with medicines Pending Studies at Discharge: Yes Studies:: Pathology Stand-Alone Forms: My [facility], Smoking Cessation Medications and DC Order Prescriptions: New oxycodone-acetaminophen [Percocet] 5-325 mg tablet 1 tab PO TID PRN (Reason: pain) Qty: 14 0RF docusate sodium [Colace] 100 mg capsule 100 mg PO BID Qty: 60 0RF Rx Instructions: Take twice daily for 2 weeks, then as needed for constipation. hydrocortisone 10 mg tablet See Rx Instructions .ROUTE .COMPLEX Qty: 41 0RF Rx Instructions: Take 2 tablets at 4 pm on 04/20. Then starting on 04/21 take 2 tablets in AM, followed by 1 tablet 8 hours later Continued escitalopram oxalate [Lexapro] 10 mg tablet 10 mg PO QAM hydroxyzine HCl 25 mg tablet 25 mg PO BID Trulicity 0.75 mg/0.5 mL pen injector 0.75 mg subcut Q7D sumatriptan succinate 100 mg tablet 100 mg PO Q2H PRN (Reason: Migraine Headache) Rx Instructions: do not exceed 2 doses per 24 hrs albuterol sulfate 90 mcg/actuation HFA aerosol inhaler 2 puff inhalation Q6H PRN (Reason: Wheezing) Discharge Orders: Discharge Order (Routine); Ordered 04/20/22 Ordered By: Marleny Ruiz/Other Patient Handouts: High Blood Sugar (Hyperglycemia), Hypoglycemia (Low Blood Sugar) Admission Data Admit Date/Time: 04/19/22 11:29 Attending Provider: Manan Parker Admit Provider: Manan Parker Primary Care Provider: Ingris Corbin Other Providers: Paul Aguayo ; Vani Amezcua ; Kee Goodson ; Chris Miller ; Phillip Iraheta ; Néstor Loomis ; Ed Aguilar ; Patria Hopper ; Belia Shaikh ; Agapito Alfaro ; Audra Moses ; Cliff Carlson ; Zain Tabor ; Yvonne Lomeli ; Riddhi Voss ; Fern Lebron ; Aman Gomes ; Rob Hernandez ; Vani Chavez ; Ivory Ly ; Ulysses Krause ; Kee Celaya ; Gini Ramesh ; Bettye Cristobal ; Jesus Onofre ; Cassandra Angeles ; Low Marcelino ; Phillip Jenkins ; David Clark ; Felipe Coats ; Makayla Luz ; Christiano Lawler Other Interventions: Discharge Summary Assessment (RN) Last Done: 04/20/22 13:17 Coding Level of Care Code D/C DAY MANAGEMENT <30 MINS Diagnoses Lesion of adrenal gland E27.9 [place] syndrome E24.9 HTN (hypertension) I10 Diabetes E11.9
--- NOTE | 2022-04-29 06:58 | Coding Query ---
PATHOLOGY To promote full compliance with coding requirements relating to patient care, physician participation is requested in all cases of medical coder uncertainty. Please assist us with the question(s) below: Please review the Pathology report and please document any relevant diagnosis(es) below: Black Adenoma of the Adrenal Gland. Diagnosis(es): Thank you BETTY Dowell [facility]
== END 2022-04-20 13:34 | disposition home or self-care (01) | DRG 614 ==
LOC: ASU 06:06 → 3E 11:29